=== PATIENT | male | born 1970 | race Caucasian/White ===

== ENCOUNTER → 2021-05-06 | Outpatient (CLI) | payer BC ==
[2021-05-06 12:46] VITALS: BP 144/82; PULSE 49; TEMP 98; BMI 35.7
--- NOTE | 2021-05-06 15:44 | P.BASOAP ---
Subjective Progress Note Date: 05/06/21 Principal diagnosis: Morbid obesity Patient presents to the bariatric clinic today complaining of frequent nausea and vomiting. Patient states he is having more dysphagia now. Mild discomfort at times. No hematemesis. No rectal bleeding or melena. Patient is currently weighing in at 235. Highest weight prior LAP-BAND placement to 80. Patient has 12.5 mL of fluid in his AP large band. He is interested in band removal. Objective - Vital Signs Vital signs: Vital Signs Temp 98 F 05/06/21 12:42 Pulse 49 L 05/06/21 12:42 Resp BP 144/82 05/06/21 12:42 Pulse Ox Intake & Output 05/05/21 05/06/21 05/06/21 18:59 06:59 18:59 Weight 106.594 kg - Exam Abdomen: Soft, nontender, nondistended Assessment/Plan (1) Morbid obesity Narrative/Plan: Patient went for upper GI prior to me seeing him. Films were reviewed. No definite abnormality seen other than the band being tight. No signs of prolapse or erosion. Will empty the patient's band at this time. Patient will be scheduled for lap band removal. The patient's lap band port was palpated. The site was aseptically prepped. The Sanchez needle was advanced into the port. A total of 10 ml of fluid was removed. Pressure was held and a sterile dressing was applied. Plan: Date: 05/06/21 Initial Weight: Initial BMI: Current Weight: 106.594 kg Current BMI: 35.7 Type of Surgery: Total Volume in Band: 0 Previous Volume: Volume Removed: 10 Volume Added: Band Size:
== END ==
LOC: BARWHC3 12:13
PROVIDERS: ATTEND Surgery
DX: E66.01 Morbid (severe) obesity due to excess calories (principal); Z68.35 Body mass index [BMI] 35.0-35.9, adult; Z98.84 Bariatric surgery status
CPT/HCPCS: 99213

== ENCOUNTER → 2021-05-06 | Outpatient (CLI) | payer BC | END | disposition home or self-care (01) | CPT/HCPCS: 74220 ==

== ENCOUNTER → 2021-11-30 | Outpatient (CLI) | payer BC ==
[2021-11-30 12:20] VITALS: BP 147/98; PULSE 61; RESP 16; TEMP 98.2; BMI 42.3
--- NOTE | 2021-11-30 12:46 | P.BASOAP ---
Subjective Progress Note Date: 11/30/21 Principal diagnosis: Morbid obesity Patient returns after having his band emptied last May. Patient had an upper GI at that time that showed the band was tight but otherwise no problems. Today patient and I discussed the options of resuming lap band fills, lap band removal, conversion to sleeve gastrectomy, conversion to gastric bypass. Patient says he has no symptoms since the band was loosened. He did gain 43 pounds however. Objective - Vital Signs Vital signs: Vital Signs Temp 98.2 F 11/30/21 12:17 Pulse 61 11/30/21 12:17 Resp 16 11/30/21 12:17 BP 147/98 11/30/21 12:17 Pulse Ox Intake & Output 11/29/21 11/30/21 11/30/21 18:59 06:59 18:59 Weight 126.099 kg - Exam Abdomen: Soft, nontender, nondistended Assessment/Plan (1) Morbid obesity Narrative/Plan: Options again reviewed with the patient. At this time the patient would like to try utilizing the band again as he has not anxious to consider any further surgery. We have agreed at 5 mL of saline at this time. Follow-up if additional feels needed. The patient's lap band port was palpated. The site was aseptically prepped. The Sanchez needle was advanced into the port. A total of 5 ml of fluid was added. Pressure was held and a sterile dressing was applied. Plan: Date: 11/30/21 Initial Weight: 123.065 kg Initial BMI: 41.2 Current Weight: 126.099 kg Current BMI: 42.3 Type of Surgery: Total Volume in Band: 0 Previous Volume: Volume Removed: Volume Added: Band Size:
== END ==
LOC: BARWHC3 12:09
PROVIDERS: ATTEND Surgery
DX: E66.01 Morbid (severe) obesity due to excess calories (principal); Z68.41 Body mass index [BMI] 40.0-44.9, adult; Z46.51 Encounter for fitting and adjustment of gastric lap band
CPT/HCPCS: 99212

== ENCOUNTER → 2022-01-25 | Outpatient (CLI) | payer BC ==
[2022-01-25 12:34] VITALS: BP 145/84; PULSE 67; TEMP 98; BMI 42.8
--- NOTE | 2022-01-25 13:00 | P.BASOAP ---
Subjective Progress Note Date: 01/25/22 Principal diagnosis: Morbid obesity Patient had today for LAP-BAND adjustment. Has band was loosened last summer and had 10 mL removed at that time. Last visit he had 5 mL added. Still feels a little to no restriction. Objective - Vital Signs Vital signs: Vital Signs Temp 98 F 01/25/22 12:32 Pulse 67 01/25/22 12:32 Resp BP 145/84 01/25/22 12:32 Pulse Ox Intake & Output 01/24/22 01/25/22 01/25/22 18:59 06:59 18:59 Weight 127.913 kg - Exam Abdomen: Soft, nontender, nondistended Assessment/Plan (1) Morbid obesity Narrative/Plan: Patient would like a band adjustment. Will anticipate 2.5 for a total of 7.5 mL. Patient will follow up if he requires further adjustments. The patient's lap band port was palpated. The site was aseptically prepped. The Sanchez needle was advanced into the port. A total of 2.5 ml of fluid was added. Pressure was held and a sterile dressing was applied. Plan: Date: 01/25/22 Initial Weight: 123.065 kg Initial BMI: 41.2 Current Weight: 127.913 kg Current BMI: 42.8 Type of Surgery: Total Volume in Band: 5 Previous Volume: Volume Removed: Volume Added: Band Size:
== END ==
LOC: BARWHC3 11:34
PROVIDERS: ATTEND Surgery
DX: E66.01 Morbid (severe) obesity due to excess calories (principal); Z46.51 Encounter for fitting and adjustment of gastric lap band; Z68.41 Body mass index [BMI] 40.0-44.9, adult
CPT/HCPCS: 99212

== ENCOUNTER → 2022-06-07 | Outpatient (CLI) | payer BC ==
[2022-06-07 13:55] VITALS: BP 133/75; PULSE 67; RESP 16; TEMP 98.5; BMI 43.0
--- NOTE | 2022-06-07 15:59 | P.BASOAP ---
Subjective Progress Note Date: 06/07/22 Principal diagnosis: Morbid obesity Patient presents today requesting a lap band fill. States he did not notice much restriction after the last adjustment. Weight has stayed about the same. No heartburn. No dysphagia. Objective - Vital Signs Vital signs: Vital Signs Temp 98.5 F 06/07/22 13:52 Pulse 67 06/07/22 13:52 Resp 16 06/07/22 13:52 BP 133/75 06/07/22 13:52 Pulse Ox FiO2 Intake & Output 06/06/22 06/07/22 06/07/22 18:59 06:59 18:59 Weight 128.367 kg - Exam Abdomen: Soft, nontender, nondistended Assessment/Plan (1) Morbid obesity Narrative/Plan: 52-year-old male with morbid obesity. Will proceed with LAP-BAND adjustment. Patient previously was too tight at 10 mL. We'll go from 7.5 to 9 mL today. The patient's lap band port was palpated. The site was aseptically prepped. The Sanchez needle was advanced into the port. A total of 1.5 ml of fluid was added. Pressure was held and a sterile dressing was applied. Plan: Date: 06/07/22 Initial Weight: 123.065 kg Initial BMI: 41.2 Current Weight: 128.367 kg Current BMI: 43.0 Type of Surgery: Adjustable Gastric Banding Total Volume in Band: 9.0 Previous Volume: Volume Removed: Volume Added: 1.5 Band Size:
== END ==
LOC: BARWHC3 13:31
PROVIDERS: ATTEND Surgery
DX: E66.01 Morbid (severe) obesity due to excess calories (principal); Z46.51 Encounter for fitting and adjustment of gastric lap band; Z68.41 Body mass index [BMI] 40.0-44.9, adult
CPT/HCPCS: 99212

== ENCOUNTER → 2023-09-12 | Outpatient (CLI) | payer BC ==
[2023-09-12 13:10] VITALS: BP 160/92; PULSE 71; TEMP 97.6; BMI 43.3
--- NOTE | 2023-09-12 13:58 | P.BASOAP ---
Subjective Progress Note Date: 09/12/23 Principal diagnosis: Morbid obesity Patient known to our service. Underwent lap band in 2012. At his heaviest the patient was 287. He was down to 235 with the band at one point several years ago. Now he is up to 285. He is having episodes of frequent vomiting and reflux. His band is at 9 mL currently. Patient is interested in band removal Objective - Vital Signs Vital signs: Vital Signs Temp 97.6 F 09/12/23 12:50 Pulse 71 09/12/23 12:50 Resp BP 160/92 09/12/23 12:50 Pulse Ox FiO2 Intake & Output 09/11/23 09/12/23 09/12/23 18:59 06:59 18:59 Weight 129.274 kg - Exam Abdomen: Soft, nontender, nondistended Assessment/Plan (1) Morbid obesity Narrative/Plan: 53-year-old male with lap band intolerance. Will loosen the patient's band. Will schedule for lap band removal. Patient unsure whether he wants to have any additional bariatric surgery in the future. He will continue to consider. Discussed options of tertiary care referral for gastric bypass at some point if desired. The patient's lap band port was palpated. The site was aseptically prepped. The Sanchez needle was advanced into the port. A total of 7 ml of fluid was removed leaving a total of approximately 2 mL. Pressure was held and a sterile dressing was applied. Plan: Date: 09/12/23 Initial Weight: 123.065 kg Initial BMI: 41.2 Current Weight: 129.274 kg Current BMI: 43.3 Type of Surgery: Total Volume in Band: 9.0 Previous Volume: Volume Removed: Volume Added: Band Size:
== END ==
LOC: BARWHC3 12:29
PROVIDERS: ATTEND Surgery
DX: E66.01 Morbid (severe) obesity due to excess calories (principal); K21.9 Gastro-esophageal reflux disease without esophagitis; R11.10 Vomiting, unspecified; Z46.51 Encounter for fitting and adjustment of gastric lap band; Z98.84 Bariatric surgery status; Z71.3 Dietary counseling and surveillance; Z68.41 Body mass index [BMI] 40.0-44.9, adult
CPT/HCPCS: 99212

== ENCOUNTER 2023-10-13 07:51 | Day surgery (SDC) | payer BC ==
[~2023-10-13 07:51] MED LIST: ceFAZolin 3 GM in SODIUM CHLORIDE 0.9% 100 ML IVPB PRN
--- NOTE | 2023-10-13 07:53 | P.GSHP ---
History of Present Illness H&P Date: 10/13/23 Chief Complaint: Dysphagia, band intolerance 53-year-old male here today for laparoscopic band removal. Patient with worsening dysphagia and vomiting. His band was recently emptied. Despite the band being overly tight he has had excessive weight gain over the last few yea rs. Patient has pain at times. He is interested in band removal. Past Medical History Past Medical History: GERD/Reflux, Hypertension, Sleep Apnea/CPAP/BIPAP Additional Past Medical History / Comment(s): uses CPAP History of Any Multi-Drug Resistant Organisms: None Reported Past Surgical History: Bariatric Surgery, Orthopedic Surgery Additional Past Surgical History / Comment(s): lap band 2008 right wrist surgery, colonoscopy Past Anesthesia/Blood Transfusion Reactions: No Reported Reaction Smoking Status: Never smoker - Past Family History Father Additional Family Medical History / Comment(s): brain aneurysm Medications and Allergies Home Medications Medication Instructions Recorded Confirmed Type Bisoprolol-Hctz 10-6.25 mg [Ziac 1 tab PO DAILY 10/09/23 10/09/23 History 10-6.25 MG] LORazepam [Ativan] 0.5 mg PO BID PRN 10/09/23 10/09/23 History Sildenafil Citrate 100 mg PO DAILY PRN 10/09/23 10/09/23 History Vilazodone HCl [Viibryd] 40 mg PO DAILY 10/09/23 10/09/23 History Allergies Allergy/AdvReac Type Severity Reaction Status Date / Time No Known Allergies Allergy Verified 10/09/23 13:41 Surgical - Exam Physical exam: General: Well-developed, well-nourished HEENT: Normocephalic, sclerae nonicteric Abdomen: Nontender, nondistended Extremities: No edema Neuro: Alert and oriented Assessment and Plan (1) Morbid obesity Narrative/Plan: 53-year-old male with lap band intolerance. We'll proceed with laparoscopic lap band removal at this time. The risks of bleeding, infection, stenosis, stricture, leak, abscess, fistula formation, peritonitis, reflux, vomiting, conversion to an open procedure, MT, PE, DVT, and were discussed. The patient understands and wishes to proceed. Status: Acute Code(s): E66.01 - MORBID (SEVERE) OBESITY DUE TO EXCESS CALORIES SNOMED Code(s): 926417788
[2023-10-13] MEDS ORDERED: MIDAZOLAM 2 MG/2 ML VIAL IV PRN (08:09)
[2023-10-13] MEDS ORDERED: DEXAMETHASONE SOD PHOSPHATE 4 MG/ML 1 ML VIAL IV ONE (08:09)
[2023-10-13] MEDS ORDERED: SCOPOLAMINE 1 MG/72 HR PATCH TRANSDERM ONE (08:09)
[2023-10-13] MEDS ORDERED: ONDANSETRON 4 MG/2 ML VIAL IVP ONE (08:09)
[2023-10-13] MEDS ORDERED: LACTATED RINGERS 1,000 ML IV SCH (08:09)
[2023-10-13] MEDS ORDERED: ACETAMINOPHEN TAB 500 MG TAB ONE (08:30)
[2023-10-13] MEDS ORDERED: HEPARIN SODIUM,PORCINE/PF 5,000 UNIT/0.5 ML SYRINGE SQ ONE (08:30)
[2023-10-13] MEDS ORDERED: KETOROLAC 30 MG/ML 1 ML VIAL ONE (08:59)
[2023-10-13] MEDS ORDERED: NEOSTIGMINE 1 MG/ML 10 ML VIAL ONE (08:59)
[2023-10-13] MEDS ORDERED: LIDOCAINE 1% INJ 10MG/ML (20 ML MDV) ONE (08:59)
[2023-10-13] MEDS ORDERED: PROPOFOL 10 MG/ML 20 ML VIAL IV ONE (08:59)
[2023-10-13] MEDS ORDERED: fentaNYL (PF) 50 MCG/ML 2 ML AMP ONE (08:59)
[2023-10-13] MEDS ORDERED: MIDAZOLAM 2 MG/2 ML VIAL ONE (08:59)
[2023-10-13] MEDS ORDERED: GLYCOPYRROLATE 0.2 MG/ML 2 ML VIAL ONE (08:59)
[2023-10-13] MEDS ORDERED: SUCCINYLCHOLINE CHLORIDE 200 MG/10 ML VIAL IV ONE (08:59)
[2023-10-13] MEDS ORDERED: ROCURONIUM 10 MG/ML (5 ML VIAL) IV ONE (08:59)
[2023-10-13] MEDS ORDERED: BUPIVACAINE (PF) 0.25% 30 ML VIAL SQ ONE (09:42)
[2023-10-13] MEDS ORDERED: LACTATED RINGERS 1,000 ML IV ONE (10:11)
[2023-10-13] MEDS ORDERED: NALOXONE 0.4 MG/ML 1 ML VIAL IV PRN (10:41)
[2023-10-13] MEDS ORDERED: HYDROcodone/APAP 5-325MG 1 EACH TAB PO PRN (10:41)
[2023-10-13] MEDS: HYDROmorphone 0.5 MG/0.5 ML SYRINGE IVP PRN ×2 (10:43→10:54)
--- NOTE | 2023-10-13 10:47 | P.OP ---
Date of Procedure: 10/13/23 Procedure(s) Performed: PREOPERATIVE DIAGNOSIS: Band intolerance/abdominal pain POSTOPERATIVE DIAGNOSIS: Same PROCEDURE: Laparoscopic lap band removal SURGEON: Trena EBL: Minimal ANESTHESIA: General COMPLICATIONS: None OPERATIVE PROCEDURE: The patient was brought and placed on the operating room table in the supine position. The patient was placed under general anesthesia at that time. The patient was then placed in lithotomy. The abdomen was prepped and draped in the usual sterile fashion. The previous port incision was localized and then incised using a scalpel. The port was easily excised using electrocautery. Entrance into the peritoneal cavity occurred using a 5 mm optical trocar through the old trocar entrance site. Insufflation took place to 15 mmHg. A right subxiphoid 5 mm trocar was placed. This was then removed and the medium Brady hook was used to elevate the left lobe of the liver anteriorly. An additional 5 mm trocar was placed under direct visualization in the left lateral upper quadrant. The original 5 mm trocar was switched to a 15 mm trocar. A additional 5 mm trocar was placed in the right upper quadrant under direct dilatation. There were adhesions to the band in the buccal that were lysed using both the LigaSure and electrocautery. The band was then cut using the laparoscopic leslie. Removing the band from its retrogastric location was somewhat challenging as it was somewhat adherent. The stomach underneath the band appeared normal. There was no bile staining of the band to suggest erosion. I did fill the stomach with 500 mL of methylene blue with no signs of leak. The band was then removed easily in 2 portions through the 15 mm trocar s ite. The stomach itself was inspected and revealed no evidence of erosion or prolapse. The trochars were removed. The fascia at the 15 mm site was closed using a [id number] 0 Vicryl stitch. The subcutaneous tissues at the port site was closed using a 3-0 Vicryl suture. The skin at all 4 incision sites were closed using 4-0 Monocryl sutures. Skin glue was then applied. DISPOSITION: Stable to recovery room
[2023-10-13 11:01] VITALS: TEMP 97.3
[2023-10-13 11:51] VITALS: RESP 16
[2023-10-13 12:40] VITALS: BP 111/69; PULSE 71
[2023-10-13] MEDS ORDERED: KETOROLAC 15 MG/ML 1 ML VIAL IVP SCH (18:00)
== END 2023-10-13 13:06 | disposition home or self-care (01) ==
LOC: OR 07:51
PROVIDERS: ATTEND Surgery
DX: E66.01 Morbid (severe) obesity due to excess calories (principal); K21.9 Gastro-esophageal reflux disease without esophagitis; I10 Essential (primary) hypertension; G47.33 Obstructive sleep apnea (adult) (pediatric); Z98.84 Bariatric surgery status; Z79.899 Other long term (current) drug therapy
CPT/HCPCS: 43774; J2250; J0330; J1100; J2710; J0690; J2405; J2001; J3010; J1885; J2704; J1170; J1644; J0665

== ENCOUNTER → 2024-03-27 | Outpatient (CLI) | payer BC ==
[2024-03-27 15:32] VITALS: BP 131/84; PULSE 69; RESP 16; TEMP 98.1; BMI 44.2
--- NOTE | 2024-03-27 15:46 | P.HPBAR ---
Bariatric H&P - History & Physicial H&P Date: 03/27/24 History & Physicial: Visit/CC: Transfer from Dr. Albrecht Patient initial contact: Initial weight: 123.065 kg Initial weight in pounds: 271.31 Height: 5 ft 8 in Initial BMI: 41.2 Last weight: Current weight: 131.995 kg Current weight in pounds: 291.00 Current BMI: 44.2 [place] body weight (based on NIH guidelines): 69.853 kg Excess body weight loss: The patient is a 53 year-old M who presents for Bariatric Assessment. Was aspirating from the band and had band removed. HE lost weight to 235 pounds and regained the weight. Has intolerance to band. Highest weight 287 pounds and now at his highest 300 pounds prior. He is now diabetic in 6 months. Now Hgb A1c 7%. Family history of diabetes. No dysphagia but has heartburn. Never had upper scope. EGD, biopsies, 2 months ago in January. Labs except Hgb A1c. Needs stress test. Past Medical History Past Medical History: GERD/Reflux, Hypertension, Sleep Apnea/CPAP/BIPAP Additional Past Medical History / Comment(s): uses CPAP History of Any Multi-Drug Resistant Organisms: None Reported Past Surgical History: Bariatric Surgery, Orthopedic Surgery Additional Past Surgical History / Comment(s): lap band 2008 right wrist surgery, colonoscopy. lap band removal 10-13-23 Past Anesthesia/Blood Transfusion Reactions: No Reported Reaction Past Psychological History: Anxiety, Depression Smoking Status: Never smoker Past Alcohol Use History: Occasional Past Drug Use History: None Reported - Past Family History Father Additional Family Medical History / Comment(s): brain aneurysm Surgical - Exam Vital Signs Temp Pulse Resp BP 98.1 F 69 16 131/84 03/27/24 14:56 03/27/24 14:56 03/27/24 14:56 03/27/24 14:56 Bariatric Checklist Checklist: Plan: Checklist: EGD: 1. Hiatal hernia: 2. H. Pylori: HgbA1c: Vitamin D: Smoking: Primary care physician referral: dr conner Psychiatry clearance: Cardiology clearance: Sleep study: Diet journal: VTE risk score: VTE risk level: Rehab needs at discharge:
[2024-03-27 16:50] LABS: Partial Thromboplastin Time 23.9 sec (22.0-30.0); Prothrombin Time 10.7 sec (10.0-12.5)
[2024-03-28 02:04] LABS: HCT 48.2 % (39.6-50.0); HGB 16.2 g/dL (13.0-17.0); MCH 32.1 pg (27.0-32.0); MCHC 33.6 g/dL (32.0-37.0); MCV 95.4 FL (80.0-97.0); Mean Platelet Volume 11.5 FL (9.5-12.2); NRBC Per 100 WBC 0 X 10*3/uL (0.00-0.01); Platelet Count 184 X 10*3/uL (140-440); RBC 5.05 X 10*6/uL (4.40-5.60); RDW 12.4 % (11.5-14.5); WBC 6.56 X 10*3/uL (4.50-10.00)
[2024-03-28 02:49] LABS: Prealbumin 24.8 mg/dL (18.0-42.0)
[2024-03-28 03:22] LABS: % Iron Saturation 23.96 (15.00-50.00); ALT 80 U/L (10-49); AST 49 U/L (14-35); Albumin 4.9 g/dL (3.8-4.9); Albumin/Globulin Ratio 1.75 Ratio (1.60-3.17); Alkaline Phosphatase 85 U/L (41-126); BUN/Creat Ratio 17.56 Ratio (12.00-20.00); Blood Urea Nitrogen 15.8 mg/dL (9.0-27.0); Calcium 10.4 mg/dL (8.7-10.3); Chloride 100 mmol/L (96-109); Chol/HDL Ratio 4.65 Ratio; Globulin 2.8 g/dL (1.6-3.3); Glucose 104 mg/dL (70-110); Iron 92 UG/DL (65-175); LDL Cholesterol,Calculated 94.8 mg/dL (0.0-131.0); Magnesium 1.9 mg/dL (1.5-2.4); Phosphorus 3.6 mg/dL (2.4-5.1); Sodium 141 mmol/L (135-145); Total Bilirubin 0.6 mg/dL (0.3-1.2); Total Iron Binding Capacity 384 UG/DL (228-460); Total Protein 7.7 g/dL (6.2-8.2)
[2024-03-28 14:59] LABS: Zinc, Serum 69 ug/dL (60-130)
[2024-03-29 10:10] LABS: Vitamin A 54 ug/dL (38-106)
[2024-03-29 10:17] LABS: Vit B1(Thiamine) 51 ug/L (38-122)
[2024-03-31 08:22] LABS: Selenium 120 mcg/L (63-160)
== END ==
LOC: BARWHC3 14:34
PROVIDERS: ATTEND Surgery Plastic and Reconstructive Surgery
DX: E66.01 Morbid (severe) obesity due to excess calories (principal); D50.8 Other iron deficiency anemias; K90.89 Other intestinal malabsorption; K74.1 Hepatic sclerosis; E55.9 Vitamin D deficiency, unspecified; N19 Unspecified kidney failure; T56.894A Toxic effect of other metals, undetermined, initial encounter; K50.90 Crohn's disease, unspecified, without complications; Z98.84 Bariatric surgery status; Z90.3 Acquired absence of stomach [part of]; Z68.41 Body mass index [BMI] 40.0-44.9, adult
CPT/HCPCS: 36415; 80053; 80061; 80307; 80323; 82306; 82525; 82607; 82728; 82746; 83540; 83550; 83735; 83970; 84100; 84134; 84255; 84425; 84443; 84590; 84630; 85027; 85610; 85730; 93005; 99211

== ENCOUNTER 2024-04-22 07:11 | Day surgery (SDC) | payer BC ==
--- NOTE | 2024-04-22 07:45 | P.GSHP ---
History of Present Illness H&P Date: 04/22/24 CHIEF COMPLAINT: GERD HISTORY OF PRESENT ILLNESS: The patient is a 53-year-old male who presents reports gastroesophageal reflux disease. Upper endoscopy was offered for further evaluation and management. PAST MEDICAL HISTORY: Please see list. PAST SURGICAL HISTORY: Please see list. MEDICATIONS: Please see list. ALLERGIES: Please see list. SOCIAL HISTORY: No illicit drug use FAMILY HISTORY: No reports of Crohn disease or ulcerative colitis. REVIEW OF ORGAN SYSTEMS: CONSTITUTIONAL: No reports of fevers or chills. GI: Denies any blood in stools or constipation. PHYSICAL EXAM: VITAL SIGNS: Stable GENERAL: Well-developed and pleasant in no acute distress. HEENT: No scleral icterus. Extraocular movements grossly intact. Moist buccal mucosa. NECK: Supple without lymphadenopathy. CHEST: Unlabored respirations. Equal bilateral excursions. CARDIOVASCULAR: Regular rate and rhythm. Distal 2+ pulses. ABDOMEN: Soft, nondistended. MUSCULOSKELETAL: No clubbing, cyanosis, or edema. ASSESSMENT: 1. Gastroesophageal reflux disease PLAN: 1. Recommend proceeding with an upper endoscopy Past Medical History Past Medical History: Diabetes Mellitus, GERD/Reflux, Hypertension, Sleep Apnea/CPAP/BIPAP Additional Past Medical History / Comment(s): uses CPAP History of Any Multi-Drug Resistant Organisms: None Reported Past Surgical History: Bariatric Surgery, Orthopedic Surgery Additional Past Surgical History / Comment(s): lap band 2008 right wrist surgery, colonoscopy. lap band removal 10-13-23 Past Anesthesia/Blood Transfusion Reactions: No Reported Reaction Smoking Status: Never smoker - Past Family History Father Additional Family Medical History / Comment(s): brain aneurysm Medications and Allergies Home Medications Medication Instructions Recorded Confirmed Type Bisoprolol-Hctz 10-6.25 mg [Ziac 1 tab PO DAILY 10/09/23 04/22/24 History 10-6.25 MG] LORazepam [Ativan] 0.5 mg PO BID PRN 10/09/23 04/22/24 History Sildenafil Citrate 100 mg PO DAILY PRN 10/09/23 04/22/24 History Vilazodone HCl [Viibryd] 40 mg PO DAILY 10/09/23 04/22/24 History metFORMIN HCL 500 mg PO DAILY 03/28/24 04/22/24 History Semaglutide [Ozempic] 2 mg SQ FR 04/16/24 04/22/24 History Allergies Allergy/AdvReac Type Severity Reaction Status Date / Time No Known Allergies Allergy Verified 04/22/24 07:34
[2024-04-22 07:47] LABS: Glucose,Whole Blood 124 mg/dL (70-110)
[2024-04-22 07:48] VITALS: TEMP 97.9
[2024-04-22] MEDS ORDERED: PROPOFOL 10 MG/ML 20 ML VIAL IV ONE (07:50)
[2024-04-22] MEDS: IV FLUID CONTINUATION 1,000 ML IV ONE (07:50)
[2024-04-22] MEDS: LACTATED RINGERS 1,000 ML IV SCH (07:51)
--- NOTE | 2024-04-22 08:32 | P.PCN ---
Date of Procedure: 04/22/24 Description of Procedure: PREOPERATIVE DIAGNOSIS: Gastroesophageal reflux disease. Morbid obesity. POSTOPERATIVE DIAGNOSIS: Gastroesophageal reflux disease. Morbid obesity. Gastritis. OPERATION: Esophagogastroduodenoscopy with biopsies along esophagus, antrum and duodenum SURGEON: Giselle Stark MD ANESTHESIA: MAC. INDICATIONS: The patient is a 53-year-old male who presents with reflux disease. Benefits and risks of the procedure were described. Informed consent was obtained. DESCRIPTION: The patient was brought into the endoscopy suite and laid in the left lateral decubitus position. An Olympus gastroscope was passed along the posterior oropharynx down to the distal esophagus where the squamocolumnar junction was encountered at 40 cm from the incisors. The stomach was entered and no bile reflux was found. Additional findings are listed below. Biopsies with cold forceps were obtained of the antrum. The first through third portion of the duodenum was examined. Retroflexion of the scope confirmed Hill grade 2 lower esophageal valve. The squamocolumnar junction demonstrated LA grade A erosive esophagitis. The stomach was desufflated. The patient tolerated the procedure well. FINDINGS: Squamocolumnar junction 40 cm from the incisors. Diaphragmatic hiatus at 40 cm. Hill grade 1 lower esophageal valve. LA grade A erosive esophagitis. Biopsies obtained Biopsies obtained of the duodenum. Chronic gastritis with biopsies obtained. RECOMMENDATIONS: Upper endoscopy as needed. Plan - Discharge Summary Discharge Rx Participant: No New Discharge Prescriptions: Continue Vilazodone HCl [Viibryd] 40 mg PO DAILY Semaglutide [Ozempic] 2 mg SQ FR Bisoprolol-Hctz 10-6.25 mg [Ziac 10-6.25 MG] 1 tab PO DAILY LORazepam [Ativan] 0.5 mg PO BID PRN PRN Reason: Anxiety Sildenafil Citrate 100 mg PO DAILY PRN PRN Reason: ED metFORMIN HCL 500 mg PO DAILY Discharge Medication List Bisoprolol-Hctz 10-6.25 mg [Ziac 10-6.25 MG] 1 tab PO DAILY 10/09/23 [History] LORazepam [Ativan] 0.5 mg PO BID PRN 10/09/23 [History] Sildenafil Citrate 100 mg PO DAILY PRN 10/09/23 [History] Vilazodone HCl [Viibryd] 40 mg PO DAILY 10/09/23 [History] metFORMIN HCL 500 mg PO DAILY 03/28/24 [History] Semaglutide [Ozempic] 2 mg SQ FR 04/16/24 [History] Follow up Appointment(s)/Referral(s): [facility] [NON-STAFF] - 05/08/24 Patient Instructions/Handouts: *Surgery [facility] - (Anesthesia) Discharge Instructions Outpatient Surgery, Gastritis (DC) Discharge Disposition: HOME SELF-CARE
[2024-04-22 09:04] VITALS: BP 117/76; PULSE 77; RESP 20
== END 2024-04-22 08:34 | disposition home or self-care (01) ==
LOC: ORWHC2ENDO 07:11
PROVIDERS: ATTEND Surgery Plastic and Reconstructive Surgery
DX: K29.50 Unspecified chronic gastritis without bleeding (principal); E11.9 Type 2 diabetes mellitus without complications; E66.01 Morbid (severe) obesity due to excess calories; G47.30 Sleep apnea, unspecified; I10 Essential (primary) hypertension; K21.9 Gastro-esophageal reflux disease without esophagitis; Z79.84 Long term (current) use of oral hypoglycemic drugs; Z79.899 Other long term (current) drug therapy; Z98.84 Bariatric surgery status; Z98.890 Other specified postprocedural states
CPT/HCPCS: 88305; 43239; J2704

== ENCOUNTER → 2024-07-29 | Day surgery (SDC) | payer BC ==
[~2024-07-29] MED LIST changes: +0.9% NACL WITH KCL 20 MEQ/L 1,000 ML IV SCH; +ACETAMINOPHEN IV (For NPO) 1,000 MG in EMPTY BAG 1 BAG IVPB SCH; +ALBUTEROL NEBULIZED 2.5 MG/3 ML INHALATION SCH; +BISOPROLOL-HCTZ 10-6.25 MG 1 EACH TAB PO SCH; +DEXAMETHASONE SOD PHOSPHATE 10 MG/ML 1 ML VIAL IVP ONE; +DEXAMETHASONE SOD PHOSPHATE 4 MG/ML 1 ML VIAL ONE; +ENOXAPARIN 40 MG/0.4 ML SYRINGE SQ PRN; +ENOXAPARIN 40 MG/0.4 ML SYRINGE SQ SCH; +GLYCOPYRROLATE 0.2 MG/ML 2 ML VIAL ONE; +HYDROmorphone 1 MG/ML 1 ML SYRINGE IVP PRN; +HYOSCYAMINE ORAL DROPS 1.875 MG/15 ML BOTTLE PO SCH; +LIDOCAINE 1% (10MG/ML) FOR IV START INTRADERMA PRN; +LIDOCAINE 1% INJ 10MG/ML (20 ML MDV) ONE; +MIDAZOLAM 2 MG/2 ML VIAL ONE; +NALOXONE 0.4 MG/ML 1 ML VIAL IV PRN; +NEOSTIGMINE 1 MG/ML 10 ML VIAL ONE; +ONDANSETRON 4 MG/2 ML VIAL IVP PRN; +ONDANSETRON 4 MG/2 ML VIAL IVP SCH; +PANTOPRAZOLE 40 MG/10 ML VIAL IV SCH; +PHENYLEPHRINE-0.9% NACL SYG 1,000 MCG/10 ML SYRINGE ONE; +PROPOFOL 10 MG/ML 20 ML VIAL IV ONE; +ROCURONIUM 10 MG/ML (5 ML VIAL) IV ONE; +ROPIVACAINE 5 MG/ML 30 ML VIAL ONE; +SIMETHICONE 80 MG CHEWABLE PO SCH; +SODIUM CHLORIDE 0.9% 2,000 ML IV ONE; +SUCCINYLCHOLINE CHLORIDE 200 MG/10 ML VIAL IV ONE; -ceFAZolin 3 GM in SODIUM CHLORIDE 0.9% 100 ML IVPB PRN; +ceFAZolin 3 GM in SODIUM CHLORIDE 0.9% 100 ML IVPB SCH; +diphenhydrAMINE 50 MG/ML 1 ML VIAL IVP SCH; +droPERidol 5 MG/2 ML VIAL IVP ONE; +fentaNYL (PF) 50 MCG/ML 2 ML AMP ONE
[2024-07-29] MEDS: IV FLUID CONTINUATION 1,000 ML IV ONE (10:20)
[2024-07-29] MEDS: LIDOCAINE 1%-EPI 1:100,000 20 ML VIAL SQ ONE ×2 (10:39→12:10)
[2024-07-29 10:40] LABS: Glucose,Whole Blood 98 mg/dL (70-110)
[2024-07-29] MEDS: LACTATED RINGERS 1,000 ML IV SCH (10:47)
[2024-07-29] MEDS: ALVIMOPAN 12 MG CAPSULE PO PRN (10:48)
[2024-07-29] MEDS: ONDANSETRON 4 MG/2 ML VIAL IVP ONE (10:48)
[2024-07-29] MEDS: ACETAMINOPHEN TAB 500 MG TAB PO PRN (10:48)
[2024-07-29] MEDS: DEXAMETHASONE SOD PHOSPHATE 4 MG/ML 1 ML VIAL IV ONE (10:48)
[2024-07-29] MEDS: fentaNYL (PF) 50 MCG/ML 2 ML AMP IVP ONE (11:09)
[2024-07-29] MEDS: MIDAZOLAM 2 MG/2 ML VIAL IVP ONE (11:09)
--- NOTE | 2024-07-29 11:23 | P.ANPRN ---
Procedure Note - Anesthesia - Nerve Block Performed Bilateral Erector Spinae Single Time Out Performed: Yes Date of Procedure: 07/29/24 Procedure Start Time: : Procedure Stop Time: :18 Location of Patient: PreOp Indication: Acute Post-Operative Pain, Analgesia, Requested by Surgeon Sedation Type: Sedate with meaningful contact maintained Preparation: Sterile Prep Position: Prone Catheter: None Needle Types: Pajunk Needle Gauge: 21 Ultrasound used to visualize needle placement: Yes Ultrasound used to observe medication spread: Yes Injectate: 0.5% Ropivacaine (see comment for volume) (Ropiv 20ml+Dexamethason 4mg---Each side. Needle level T7) Blood Aspirated: No Pain Paresthesia on Injection Noted: No Resistance on Injection: Normal Image Stored and Saved: Yes Events: Uneventful and Well Tolerated
--- NOTE | 2024-07-29 11:39 | P.GSHP ---
History of Present Illness H&P Date: 07/29/24 CHIEF COMPLAINT: Morbid obesity HISTORY OF PRESENT ILLNESS: Raúl Garcia is a 54-year-old male who comes with lifelong morbid obesity. As result of morbid obesity, he has developed diabetes type 2, hypertensive heart disease, obstructive sleep apnea, hyperlipidemia, osteoarthritis of the hips and knees. He has completed medical supervised weight loss. He completed medical including cardiac assessment. He has completed psychological risk assessment. All surgical options were reviewed. He elected for sleeve gastrectomy. At height of 5 feet 8 inches, ideal body weight is 163 pounds. He comes in 220 pounds. Body mass index is 40.6. He is 104 pounds overweight. PAST MEDICAL HISTORY: 1. Morbid obesity due to excess calories 2. Body mass index of 40.6 3. Osteoarthritis of the knees. 4. Osteoarthritis of the lower back. 5. Hypertensive heart disease. 6. Gastroesophageal reflux disease 7. Hyperlipidemia 8. Obstructive sleep apnea 9. Diabetes type 2 10. Fatty liver disease PAST SURGICAL HISTORY: See list HOME MEDICATIONS: See list ALLERGIES: See list SOCIAL HISTORY: No current tobacco abuse disorder. FAMILY HISTORY: No family history of ulcerative colitis disease or Crohn's disease. Family history of morbid obesity. No lupus in the family. No reports of stomach or esophageal cancer. REVIEW OF ORGAN SYSTEMS: CONSTITUTIONAL: At height of 5 feet 8 inches, ideal body weight is 163 pounds. He comes in 220 pounds. Body mass index is 40.6. He is 104 pounds overweight. HEENT: Denies any active troubles with vision or hearing. ENDOCRINE: Has diabetes. Has hypothyroidism. CARDIOVASCULAR: Past reports of palpitations or heart attacks or chest pain. RESPIRATORY: Has daytime somnolence. GASTROINTESTINAL: Denies any bright red blood per rectum. Has gastroesophageal reflux disease. MUSCULOSKELETAL: Has lower back pain and joint pain. Has osteoarthritis of the knees. NEURO: No headaches. No seizure disorders. PSYCH: Has depression. No suicidal ideation. RHEUMATOLOGIC: No lupus. No rheumatoid arthritis. HEMATOLOGIC: Denies any abnormal bleeding or bruising. No personal history of DVTs. SKIN: Has rash. No skin cancer. PHYSICAL EXAM: VITAL SIGNS: Height 5 foot 8 inches, weight 267 pounds. BMI 40.6 GENERAL: Well-developed in no acute distress. HEENT: No scleral icterus. Extraocular movements grossly intact. Hears conversational speech. No nasal drainage. NECK: Supple without lymphadenopathy. CHEST: Nonlabored respirations with equal bilateral excursions. CARDIOVASCULAR: Regular rate and regular rhythm. Distal 2+ pulses. ABDOMEN: Obese, soft, nontender, nondistended. MUSCULOSKELETAL: No clubbing, cyanosis. NEURO: No focal or lateralizing signs. Cranial nerves 2 through 12 grossly within normal limits. PSYCH: Appropriate affect. Alert and oriented to person, place and time. SKIN: Good skin turgor. Well perfused. ASSESSMENT: 1. Morbid obesity due to excess calories 2. Body mass index of 40.6 3. Osteoarthritis of the knees. 4. Osteoarthritis of the lower back. 5. Hypertensive heart disease. 6. Gastroesophageal reflux disease 7. Hyperlipidemia 8. Obstructive sleep apnea 9. Diabetes type 2 10. Fatty liver disease PLAN: 1. Bariatric options between a sleeve, band and a Annamarie-en-Y gastric bypass were reviewed in detail. The patient elected for a sleeve gastrectomy. Robotic assisted approach described. 2. The [place] [facility] Data was also reviewed with benefits and risks as described. 3. An 8 page second-generation bariatric consent form was reviewed in detail including potential of bleeding, infection, leaks, adequate weight loss, nutritional deficiencies which the patient demonstrated understanding of the risks. 4. A 2 week high-protein low caloric 800 kcal diet described to address hepatomegaly. 5. Preoperative labs including complete metabolic panel and CBC with type and screen recommended. 6. DVT prophylaxis per [place] [facility]. 7. Antibiotic prophylaxis. 8. Inpatient hospitalization anticipated for more than 2 nights. 9. All questions and concerns were addressed with the patient. 10. He is at elevated risk for perioperative complications secondary to pre- existing diabetes type 2, obstructive sleep apnea, pre-existing coronary artery disease. 11. Overall, patient has expressed understanding of bariatric care including postoperative diet and commitment of lifestyle. Patient should benefit from surgical intervention for correction of her morbid obesity. Past Medical History Past Medical History: Diabetes Mellitus, GERD/Reflux, Hypertension, Sleep Apnea/CPAP/BIPAP Additional Past Medical History / Comment(s): uses CPAP History of Any Multi-Drug Resistant Organisms: None Reported Past Surgical History: Bariatric Surgery, Orthopedic Surgery Additional Past Surgical History / Comment(s): lap band 2008, right wrist surgery, EGD/colonoscopy. lap band removal 10-13-23 Past Anesthesia/Blood Transfusion Reactions: No Reported Reaction Past Psychological History: Anxiety, Depression Smoking Status: Never smoker Past Alcohol Use History: Occasional Additional Past Alcohol Use History / Comment(s): 4-6 drinks/week Past Drug Use History: None Reported - Past Family History Father Additional Family Medical History / Comment(s): brain aneurysm in father and p aternal grandmother Medications and Allergies Home Medications Medication Instructions Recorded Confirmed Type Bisoprolol-Hctz 10-6.25 mg [Ziac 1 tab PO DAILY 10/09/23 07/29/24 History 10-6.25 MG] LORazepam [Ativan] 0.5 mg PO BID PRN 10/09/23 07/29/24 History Sildenafil Citrate 100 mg PO DAILY PRN 10/09/23 07/29/24 History Vilazodone HCl [Viibryd] 40 mg PO DAILY 10/09/23 07/29/24 History Semaglutide [Ozempic] 1 mg SQ WEEKLY 04/16/24 07/29/24 History Allergies Allergy/AdvReac Type Severity Reaction Status Date / Time No Known Allergies Allergy Verified 07/29/24 10:25
[2024-07-29] MEDS: ceFAZolin 3 GM in SODIUM CHLORIDE 0.9% 100 ML IVPB PRN (11:45)
[2024-07-29] MEDS: LACTATED RINGERS 1,000 ML IV ONE (13:07)
--- NOTE | 2024-07-29 13:19 | P.OP ---
Date of Procedure: 07/29/24 Description of Procedure: SURGEON: REYNALDO MIX MD PREOPERATIVE DIAGNOSES: 1. Morbid obesity due to excess calories POSTOPERATIVE DIAGNOSES: 1. Morbid obesity due to excess calories OPERATION: 1. Robotic assisted daVinci Xi laparoscopic sleeve gastrectomy with 40-Kyrgyz bougie, multiport. 2. Robotic assisted daVinci Xi laparoscopic lysis of adhesions ANESTHESIA: Gen. local anesthetic ESTIMATED BLOOD LOSS: 5 mL SPECIMENS REMOVED: Sleeve gastrectomy COMPLICATIONS: None. FINDINGS: 1. Negative intraoperative esophagogastrojejunoscopy leak test. 2. Mild hepatomegaly with fatty liver disease and no hiatus hernia. 3. Total of 6 staplers used including 2 - 60 mm black, 2 - 60 mm green, 5 - 60 mm blue robot loads used to create the gastric sleeve. 4. Sleeve gastrectomy, 29 x 7 cm 5. Moderate scarring along hiatus and superior pole of the stomach with lysis of adhesions performed from prior adjustable gastric band INDICATIONS: The patient is a 54-year-old male who comes with lifelong morbid obesity. All surgical options for morbid obesity had been described using the [place] [facility] collaborative comorbidity resolution including complication risk score. A second-generation bariatric consent form was described in detail including the possibility of protein malnutrition, leaks, gastric stricture, venous thrombosis, gastroesophageal reflux disease, need for further surgery for which she demonstrated understanding. Benefits and risks of the procedure were described at length. Informed consent was obtained. DESCRIPTION: The patient was brought into the operating room theater. Preoperatively she had received Lovenox subcutaneously for DVT prophylaxis. Additionally she had Peridex oral solution as an oral decontaminant. After general induction, the abdomen was prepped and draped in standard sterile fashion. An Ioban draping was placed along the abdomen. A robotic da Lidya Xi system was prepped and primed. At 15 cm from the xiphoid, proposed port sites were marked with indelible marker along the anterior axillary line bilaterally, mid axillary line bilaterally with each ports were marked 10 to 15 cm from each other. The robotic stapler port was marked for the right midclavicular line. A 5 mm 0 degrees laparoscopic trocar entry was performed along the left upper quadrant. The abdomen was insufflated to 15 mmHg pressure was tolerated well. Diagnostic laparoscopy demonstrated no injury to bowel, viscera, or mesentery. No evidence of large hiatus hernia was identified. The liver edge was slightly thickened due to mild hepatomegaly despite 2-week protein diet. A 8 mm port was placed along the left upper abdominal wall after exchanging the 5 mm port. A separate 8 mm port was placed along the left lateral abdominal wall. Please note that the ports were placed at least 20 cm away from the target anatomy. Care was taken to check each robotic arms were safely away from collision with the bed or the patient. At the epigastrium, a medium sized Brady liver retractor was placed under direct visualization with the [employer] Worker placed under the right shoulder of the patient. Next, 12-mm robot stapler port was placed along the right upper quadrant. The camera 8-mm port was maintained along the epigastrium. The patient was repositioned in reverse Trendelenburg position at 21-degrees after lowering the bed. The robot was docked along the left side of the patient. Using a grasper for arm 4, a vessel sealer for arm 3, including grasper for arm 1, the robotic system was docked and primed as described. Instruments were interchanged by the hotel assistant general manager for stapler loads. The camera was placed at 30-degrees down. I had sat at the console. The pylorus was identified and 6 cm proximally along the greater curvature of the stomach, the short gastrics were mobilized upwards to the angle of His using a vessel sealer. Hemostasis was excellent during this portion of the procedure. Next, the upper pole of the stomach was adherent to the left janessa, which was gently dissected free using atraumatic grasper. I went to the head of the bed and placed 40-Kyrgyz blunt bougie into the stomach. The bougie was readjusted by the nurse positive printer operator. Robotic stapler black load 60 mm 1 followed by green 60 mm x 1, and blue 60 mm loads x 4 were used to create the sleeve. Initial firing was across the antrum of the stomach towards the angle of His. The staple line was linear without corkscrewing. The space from the angularis incisura of the sleeve was approximately 4 cm. I then went to the head of the bed to perform the intraoperative esophagogastroduodenoscopy leak test. The bougie was withdrawn. The upper pole of the stomach was bathed using normal saline solution. The scope was withdrawn with careful inspection along the staple line for which no leaks were found along the entire length. Additionally,the sleeve was completely hemostatic without any encroachment along the angularis incisura. Its topology was a soft "J". No stricture was encountered upon placement of the scope. The GI tract was desufflated. The patient tolerated this portion of the procedure well. The scope was completely withdrawn. The robot was undocked. I then rescrubbed into case, whereby the irrigation fluid was aspirated from the abdominal cavity. Tisseel fibrin sealant was placed along the entire staple length. Once dried the Brady liver retractor was removed. Attention was now brought to removal of the specimen. The distal end of the sleeve gastrectomy specimen was brought out through the 12 mm port at the left upper quadrant. The specimen was gently removed en total. No contamination had occurred during this process. All instruments and pneumoperitoneum including irrigation fluid was removed from the abdominal cavity. The 12 mm port site was closed using 0-Vicryl and Herbert Gaston and irrigated with diluted hydrogen peroxide. The final incisions were closed using subcuticular interrupted suture of 4-0 Monocryl. Exofin was applied to the skin once the skin had been cleansed. OptiFoam dressing was placed along the stomach extraction site. The sleeve specimen was measured and checked also for leaks which none were found. At the end of the procedure, needle, sponge, and instrument count was verified correct by the surgical attendant. The patient was taken to the postanesthesia care unit in stable condition. The patient had tolerated the procedure well. Intraoperative films and findings were reviewed with the patient's family.
[2024-07-29 13:30] VITALS: TEMP 97.4
[2024-07-29 13:43] LABS: Glucose,Whole Blood 125 mg/dL (70-110)
[2024-07-29] MEDS: HYDROmorphone 0.5 MG/0.5 ML SYRINGE IVP PRN (13:55)
--- NOTE | 2024-07-29 16:06 | P.DS ---
Providers Date of admission: 07/29/24 Expected date of discharge: 07/29/24 Attending physician: Giselle Stark Primary care physician: Vikash Pearson DO Hospital Course: POSTOPERATIVE DIAGNOSES: 1. Morbid obesity due to excess calories 2. Body mass index of 40.6 3. Osteoarthritis of the knees. 4. Osteoarthritis of the lower back. 5. Hypertensive heart disease. 6. Gastroesophageal reflux disease 7. Hyperlipidemia 8. Obstructive sleep apnea 9. Diabetes type 2 10. Fatty liver disease OPERATION: 1. Robotic assisted daVinci Xi laparoscopic sleeve gastrectomy with 40-Tajik bougie, multiport. 2. Robotic assisted daVinci Xi laparoscopic lysis of adhesions ANESTHESIA: Gen. local anesthetic ESTIMATED BLOOD LOSS: 5 mL SPECIMENS REMOVED: Sleeve gastrectomy COMPLICATIONS: None. FINDINGS: 1. Negative intraoperative esophagogastrojejunoscopy leak test. 2. Mild hepatomegaly with fatty liver disease and no hiatus hernia. 3. Total of 6 staplers used including 2 - 60 mm black, 2 - 60 mm green, 5 - 60 mm blue robot loads used to create the gastric sleeve. 4. Sleeve gastrectomy, 29 x 7 cm 5. Moderate scarring along hiatus and superior pole of the stomach with lysis of adhesions performed from prior adjustable gastric band INDICATIONS: The patient is a 54-year-old male who comes with lifelong morbid obesity. He has pre-existing history of adjustable gastric band which was removed earlier. Patient completed bariatric risk assessment including cardiac risk assessment. He completed high-protein low-carb diet prior to admission. He underwent robotic sleeve gastrectomy without sequelae. Bariatric instructions including dietary guidelines were reviewed at length. Prior to discharge, patient was hemodynamically stable. Procedures: OPERATION: 1. Robotic assisted daVinci Xi laparoscopic sleeve gastrectomy with 40-Tajik bougie, multiport. 2. Robotic assisted daVinci Xi laparoscopic lysis of adhesions ANESTHESIA: Gen. local anesthetic ESTIMATED BLOOD LOSS: 5 mL SPECIMENS REMOVED: Sleeve gastrectomy COMPLICATIONS: None. FINDINGS: 1. Negative intraoperative esophagogastrojejunoscopy leak test. 2. Mild hepatomegaly with fatty liver disease and no hiatus hernia. 3. Total of 6 staplers used including 2 - 60 mm black, 2 - 60 mm green, 5 - 60 mm blue robot loads used to create the gastric sleeve. 4. Sleeve gastrectomy, 29 x 7 cm 5. Moderate scarring along hiatus and superior pole of the stomach with lysis of adhesions performed from prior adjustable gastric band Patient Condition at Discharge: Good Plan - Discharge Summary Discharge Rx Participant: Yes New Discharge Prescriptions: New Simethicone 40 mg/0.6 ml Drops [Mylicon Drops] 40 mg PO PCHS PRN #30 ml PRN Reason: Gas Acetaminophen Tab [Tylenol Tab] 1,000 mg PO Q6HR PRN #30 tablet PRN Reason: Pain bisacodyL [Dulcolax] 5 mg PO DAILY PRN #10 tab PRN Reason: Constipation Omeprazole [PriLOSEC] 40 mg PO DAILY #30 cap Ondansetron Odt [Zofran Odt] 4 mg PO Q8HR PRN #9 tab PRN Reason: Nausea Continue Vilazodone HCl [Viibryd] 40 mg PO DAILY Bisoprolol-Hctz 10-6.25 mg [Ziac 10-6.25 MG] 1 tab PO DAILY LORazepam [Ativan] 0.5 mg PO BID PRN PRN Reason: Anxiety Sildenafil Citrate 100 mg PO DAILY PRN PRN Reason: ED Discontinued Semaglutide [Ozempic] 1 mg SQ WEEKLY Discharge Medication List Bisoprolol-Hctz 10-6.25 mg [Ziac 10-6.25 MG] 1 tab PO DAILY 10/09/23 [History] LORazepam [Ativan] 0.5 mg PO BID PRN 10/09/23 [History] Sildenafil Citrate 100 mg PO DAILY PRN 10/09/23 [History] Vilazodone HCl [Viibryd] 40 mg PO DAILY 10/09/23 [History] Acetaminophen Tab [Tylenol Tab] 1,000 mg PO Q6HR PRN #30 tablet 07/29/24 [Rx] Omeprazole [PriLOSEC] 40 mg PO DAILY #30 cap 07/29/24 [Rx] Ondansetron Odt [Zofran Odt] 4 mg PO Q8HR PRN #9 tab 07/29/24 [Rx] Simethicone 40 mg/0.6 ml Drops [Mylicon Drops] 40 mg PO PCHS PRN #30 ml 07/29/24 [Rx] bisacodyL [Dulcolax] 5 mg PO DAILY PRN #10 tab 07/29/24 [Rx] Follow up [facility]ment(s[facility]Ref[facility] [place] [place] [facility] 3:00 pm (OBTAIN SWALLOW STUDY MORNING OF 07/31/24) Patient Instructions/Handouts: *Surgery [facility] - (Anesthesia) Discharge Instructions Outpatient Surgery, Nutrition after Bariatric Surgery (DC), Laparoscopic Sleeve Gastrectomy (DC) Activity/Diet/Wound Care/Special Instructions: NO LONG DRIVES OR AIRPLANE RIDES OVER 30 MINUTES FOR THE NEXT 2 WEEKS, Aug 12, DUE TO HIGH RISK OF PULMONARY EMBOLISM/DVTs Liquid diet only for 2 weeks until Aug 12 May Shower. No soaking in bath tubs 2 weeks until Aug 12 Continue to use incentive spirometry to prevent pneumonias. Please continue to ambulate at home to prevent blood clots in legs. Please notify your surgeon if you develop nausea and vomiting including new onset of abdominal pain. No lifting over 4 pounds in 4 weeks, Aug 28 Drink 64 oz of fluid daily. Start protein shakes on . Notify bariatric center for temp over 101.0, increased pain, drainage from incisions. No straws or carbonated beverages. Liquid diet only. Sugar content should be less than 6 g to avoid dumping syndrome. Take MOM for constipation. CRUSH, OPEN, OR CUT TABLETS LARGER THAN A SIZE OF A TIC TAC Discharge Disposition: HOME SELF-CARE
[2024-07-29 16:10] VITALS: RESP 18
[2024-07-29 16:24] VITALS: BP 112/74; PULSE 99
== END | disposition home or self-care (01) ==
LOC: OR 10:03
PROVIDERS: ATTEND Surgery Plastic and Reconstructive Surgery
DX: E66.01 Morbid (severe) obesity due to excess calories
CPT/HCPCS: 43775; 64999; 86850; 86900; 86901; 88307; S2900

== ENCOUNTER → 2024-07-31 | Outpatient (CLI) | payer BC ==
[2024-07-31 10:30] VITALS: BP 115/71; PULSE 60; RESP 16; TEMP 97.6; BMI 40.3
--- NOTE | 2024-08-02 18:16 | P.BASOAP ---
Subjective Progress Note Date: 08/02/24 Patient doing extremely well from conversion of band to sleeve gastrectomy. Pain well-controlled. He is ambulating without difficulty. He is tolerating liquids without difficulty. He feels great. Close outpatient follow-up via telephone being present provided by bariatric center. As needed IV fluid boluses in 48 hours. Follow-up in 1 week, Wednesdays clinic. Objective - Vital Signs Vital signs: Vital Signs Temp 97.6 F 07/31/24 10:15 Pulse 60 07/31/24 10:15 Resp 16 07/31/24 10:15 BP 115/71 07/31/24 10:15 Pulse Ox FiO2 Assessment/Plan Plan: Date: 07/31/24 Initial Weight: 123.065 kg Initial BMI: 41.2 Current Weight: 120.202 kg Current BMI: 40.3 Type of Surgery: Total Volume in Band: 2 Previous Volume: Volume Removed: Volume Added: Band Size:
== END ==
LOC: BARWHC3 10:01
PROVIDERS: ATTEND Surgery Plastic and Reconstructive Surgery
DX: E66.01 Morbid (severe) obesity due to excess calories (principal); Z71.3 Dietary counseling and surveillance; Z68.41 Body mass index [BMI] 40.0-44.9, adult
CPT/HCPCS: 97802; G0463; 99211

== ENCOUNTER → 2024-07-31 | Outpatient (CLI) | payer BC ==
--- NOTE | 2024-07-31 10:41 | FL ---
EXAMINATION TYPE: FL barium swallow DATE OF EXAM: 07/31/2024 LIMITED UGI-ESOPHAGRAM: CLINICAL HISTORY: Postop. TECHNIQUE: Limited esophagram is performed utilizing 10 oz of Isovue-370. A total of not provided se conds of fluoroscopic time was utilized during procedure. FINDINGS: The patient swallowed contrast without difficulty or delay. Esophageal peristalsis and mo tility are within normal limits. There is good flow of contrast along the diaphragmatic hiatus into t he stomach, there is no evidence of contrast extravasation to suggest leak. IMPRESSION: No evidence of leak or significant obstruction. [facility], , 07/31/2024 10:39 AM
== END | disposition home or self-care (01) ==
LOC: RADFLMAIN 09:30
PROVIDERS: ATTEND Surgery Plastic and Reconstructive Surgery
DX: R13.10 Dysphagia, unspecified (principal)
CPT/HCPCS: 74220

== ENCOUNTER → 2024-08-07 | Outpatient (CLI) | payer BC ==
[2024-08-07 14:04] VITALS: BP 115/78; PULSE 55; RESP 16; TEMP 97.9; BMI 38.6
--- NOTE | 2024-08-07 14:28 | P.BASOAP ---
Subjective Progress Note Date: 08/07/24 Nerve block wore off at morning. Happy to go home same day. NO nausea. He had water to drink without nausea. Drink test 2 days after. He lost 30 pounds in 3 months. He appreciated the experience. He did well. Incisions using antibiotic. He is doing very well. He stopped tylenol. Abdominal binder was used for pain and icing. 90 grams of protein daily. Labs to start. Objective - Vital Signs Vital signs: Vital Signs Temp 97.9 F 08/07/24 14:00 Pulse 55 L 08/07/24 14:00 Resp 16 08/07/24 14:00 BP 115/78 08/07/24 14:00 Pulse Ox FiO2 Intake & Output 08/06/24 08/07/24 08/07/24 18:59 06:59 18:59 Weight 115.212 kg Assessment/Plan Plan: Date: 08/07/24 Initial Weight: 123.065 kg Initial BMI: 41.2 Current Weight: 115.212 kg Current BMI: 38.6 Type of Surgery: Total Volume in Band: 2 Previous Volume: Volume Removed: Volume Added: Band Size:
== END | disposition home or self-care (01) ==
LOC: BARWHC3 13:23
PROVIDERS: ATTEND Surgery Plastic and Reconstructive Surgery
DX: E66.01 Morbid (severe) obesity due to excess calories (principal); Z71.3 Dietary counseling and surveillance; Z68.38 Body mass index [BMI] 38.0-38.9, adult
CPT/HCPCS: 97803; G0463; 99211

== ENCOUNTER → 2024-08-21 | Outpatient (CLI) | payer BC ==
[2024-08-21 13:35] LABS: Partial Thromboplastin Time 24.4 sec (22.0-30.0); Prothrombin Time 11.3 sec (10.0-12.5)
[2024-08-21 18:49] LABS: HGB 14.6 g/dL (13.0-17.0); MCH 33.9 pg (27.0-32.0); MCHC 34.8 g/dL (32.0-37.0); MCV 97.4 FL (80.0-97.0); Mean Platelet Volume 12.8 FL (9.5-12.2); NRBC Per 100 WBC 0 X 10*3/uL (0.00-0.01); Platelet Count 165 X 10*3/uL (140-440); RBC 4.31 X 10*6/uL (4.40-5.60); RDW 12.6 % (11.5-14.5); WBC 4.43 X 10*3/uL (4.50-10.00)
[2024-08-21 23:38] LABS: % Iron Saturation 29.19 (15.00-50.00); ALT 59 U/L (10-49); AST 34 U/L (14-35); Albumin 4.3 g/dL (3.8-4.9); Albumin/Globulin Ratio 1.79 Ratio (1.60-3.17); Alkaline Phosphatase 72 U/L (41-126); BUN/Creat Ratio 10.75 Ratio (12.00-20.00); Blood Urea Nitrogen 8.6 mg/dL (9.0-27.0); Calcium 9.7 mg/dL (8.7-10.3); Carbon Dioxide 24.7 mmol/L (21.6-31.8); Chloride 104 mmol/L (96-109); Chol/HDL Ratio 3.75 Ratio; Globulin 2.4 g/dL (1.6-3.3); Glucose 90 mg/dL (70-110); Iron 87 UG/DL (65-175); LDL Cholesterol,Calculated 73.4 mg/dL (0.0-131.0); Magnesium 1.8 mg/dL (1.5-2.4); Phosphorus 3.5 mg/dL (2.4-5.1); Potassium 4.5 mmol/L (3.5-5.5); Sodium 140 mmol/L (135-145); Total Bilirubin 0.6 mg/dL (0.3-1.2); Total Iron Binding Capacity 298 UG/DL (228-460); Total Protein 6.7 g/dL (6.2-8.2); VLDL Calculation 12.42 mg/dL (5.00-40.00)
[2024-08-21 23:56] LABS: Prealbumin 16.2 mg/dL (18.0-42.0)
[2024-08-22 15:50] LABS: Zinc, Serum 81 ug/dL (60-130)
[2024-08-23 07:47] LABS: Vitamin A 32 ug/dL (38-106)
[2024-08-26 08:35] LABS: Vit B1(Thiamine) 40 ug/L (38-122)
== END | disposition home or self-care (01) ==
LOC: LABWHC1 12:36
PROVIDERS: ATTEND Surgery Plastic and Reconstructive Surgery
CPT/HCPCS: 36415; 80053; 80061; 82306; 82525; 82607; 82728; 82746; 83036; 83540; 83550; 83735; 83970; 84100; 84134; 84255; 84425; 84443; 84590; 84630; 85027; 85610; 85730

== ENCOUNTER → 2024-08-21 | Outpatient (CLI) | payer BC ==
[2024-08-21 13:21] VITALS: BP 114/67; PULSE 50; RESP 16; TEMP 98.2; BMI 38.1
--- NOTE | 2024-08-21 13:45 | P.BASOAP ---
Subjective Progress Note Date: 08/21/24 Avoid early stall by doing journal. Heart rate is low and asymptomatic. Keep hydrated. Lose 50 more pounds. Labs today. Protein daily 80 to 100 g. FU October Objective - Vital Signs Vital signs: Vital Signs Temp 98.2 F 08/21/24 13:17 Pulse 50 L 08/21/24 13:17 Resp 16 08/21/24 13:17 BP 114/67 08/21/24 13:17 Pulse Ox FiO2 Intake & Output 08/20/24 08/21/24 08/21/24 18:59 06:59 18:59 Weight 113.852 kg Assessment/Plan Plan: Date: 08/21/24 Initial Weight: 123.065 kg Initial BMI: 41.2 Current Weight: 113.852 kg Current BMI: 38.1 Type of Surgery: Total Volume in Band: 2 Previous Volume: Volume Removed: Volume Added: Band Size:
== END ==
LOC: BARWHC3 12:24
PROVIDERS: ATTEND Surgery Plastic and Reconstructive Surgery
DX: E66.01 Morbid (severe) obesity due to excess calories (principal); Z71.3 Dietary counseling and surveillance; Z68.38 Body mass index [BMI] 38.0-38.9, adult
CPT/HCPCS: 97803; G0463; 99211

== ENCOUNTER → 2024-10-23 | Outpatient (CLI) | payer BC ==
[2024-10-23 12:56] VITALS: BP 147/81; PULSE 72; RESP 16; TEMP 98.3; BMI 33.9
--- NOTE | 2024-10-23 13:20 | P.BASOAP ---
Subjective Progress Note Date: 10/23/24 Patient is status post leave gastrectomy doing remarkable weight loss. Average weight loss 80 to 90 g daily protein intake. No reflux. No heartburn. No bowel changes. Heart rate is 50s without symptoms. Patient had to cut declined or cut his hyper pressure medication in half. Doing extremely well. Highest weight 291. Current 226. Personal goal is 200 pounds. He is less than 3 months out. Follow-up in end of December early January reviewed. Patient has history of tobacco abuse. Vitamin A, D, low. Repeat labs today. Objective - Vital Signs Vital signs: Vital Signs Temp 98.3 F 10/23/24 12:46 Pulse 72 10/23/24 12:46 Resp 16 10/23/24 12:46 BP 147/81 10/23/24 12:46 Pulse Ox FiO2 Intake & Output 10/22/24 10/23/24 10/23/24 18:59 06:59 18:59 Weight 101.151 kg Assessment/Plan Plan: Date: 10/23/24 Initial Weight: 123.065 kg Initial BMI: 41.2 Current Weight: 101.151 kg Current BMI: 33.9 Type of Surgery: Total Volume in Band: 2 Previous Volume: Volume Removed: Volume Added: Band Size:
[2024-10-23 14:14] LABS: INR 1.1 (<1.2); Partial Thromboplastin Time 23.7 sec (22.0-30.0); Prothrombin Time 12.2 sec (10.0-12.5)
[2024-10-23 18:35] LABS: HGB 16.2 g/dL (13.0-17.0); MCH 31.4 pg (27.0-32.0); MCHC 33.8 g/dL (32.0-37.0); Mean Platelet Volume 11.6 FL (9.5-12.2); NRBC Per 100 WBC 0 X 10*3/uL (0.00-0.01); Platelet Count 179 X 10*3/uL (140-440); RBC 5.16 X 10*6/uL (4.40-5.60); RDW 12.5 % (11.5-14.5); WBC 5.68 X 10*3/uL (4.50-10.00)
[2024-10-23 19:17] LABS: % Iron Saturation 23.01 (15.00-50.00); ALT 32 U/L (10-49); AST 30 U/L (14-35); Albumin 4.5 g/dL (3.8-4.9); Albumin/Globulin Ratio 1.73 Ratio (1.60-3.17); Alkaline Phosphatase 94 U/L (41-126); Blood Urea Nitrogen 7.6 mg/dL (9.0-27.0); Calcium 9.8 mg/dL (8.7-10.3); Carbon Dioxide 26.2 mmol/L (21.6-31.8); Chloride 102 mmol/L (96-109); Chol/HDL Ratio 3.35 Ratio; Globulin 2.6 g/dL (1.6-3.3); Glucose 90 mg/dL (70-110); Iron 75 UG/DL (65-175); Magnesium 1.9 mg/dL (1.5-2.4); Phosphorus 3.2 mg/dL (2.4-5.1); Potassium 3.7 mmol/L (3.5-5.5); Sodium 142 mmol/L (135-145); Total Bilirubin 0.7 mg/dL (0.3-1.2); Total Iron Binding Capacity 326 UG/DL (228-460); Total Protein 7.1 g/dL (6.2-8.2); VLDL Calculation 13.88 mg/dL (5.00-40.00)
[2024-10-23 20:17] LABS: Prealbumin 20.2 mg/dL (18.0-42.0)
[2024-10-24 12:59] LABS: Zinc, Serum 82 ug/dL (60-130)
[2024-10-25 06:41] LABS: Vitamin A 36 ug/dL (38-106)
[2024-10-25 09:43] LABS: Vit B1(Thiamine) 47 ug/L (38-122)
== END ==
LOC: BARWHC3 12:26
PROVIDERS: ATTEND Surgery Plastic and Reconstructive Surgery
DX: E66.01 Morbid (severe) obesity due to excess calories (principal); Z71.3 Dietary counseling and surveillance; E89.1 Postprocedural hypoinsulinemia; D50.8 Other iron deficiency anemias; D50.9 Iron deficiency anemia, unspecified; K91.2 Postsurgical malabsorption, not elsewhere classified; E44.0 Moderate protein-calorie malnutrition; E45 Retarded development following protein-calorie malnutrition; E55.9 Vitamin D deficiency, unspecified; K74.1 Hepatic sclerosis; N19 Unspecified kidney failure; T56.894A Toxic effect of other metals, undetermined, initial encounter; K50.90 Crohn's disease, unspecified, without complications; Z68.33 Body mass index [BMI] 33.0-33.9, adult; Z87.891 Personal history of nicotine dependence
CPT/HCPCS: 80053; 80061; 82306; 82525; 82607; 82728; 82746; 83036; 83540; 83550; 83735; 83970; 84100; 84134; 84255; 84425; 84443; 84590; 84630; 85027; 85610; 85730; 97803; 99211